=== PATIENT | female | born 1990 | race Caucasian/White ===

== ENCOUNTER → 2016-05-27 21:00 | Emergency (ER) | payer OTHER ==
[~2016-05-27 21:00] MED LIST: DIFLUCAN PO; MACROBID100 MG PO; NO MEDICATIONS; ZOFRANODT PO
== END | disposition left against medical advice (07) ==
LOC: CED 21:00
DX: Z53.21 Procedure and treatment not carried out due to patient leaving prior to being seen by health care provider (principal)

== ENCOUNTER 2016-06-03 03:13 | Emergency (ER) | payer OTHER | END 2016-06-03 03:41 | disposition home or self-care (01) | LOC: SED 03:13 | DX: J06.9 Acute upper respiratory infection, unspecified (principal); F41.9 Anxiety disorder, unspecified; F31.9 Bipolar disorder, unspecified; F17.200 Nicotine dependence, unspecified, uncomplicated | CPT/HCPCS: 84703; 99283 ==

== ENCOUNTER 2016-09-26 21:18 | Emergency (ER) | payer SELFPAY ==
[~2016-09-26] VITALS: Ht 160 cm; Wt 49.9 kg
== END 2016-09-26 23:15 | disposition home or self-care (01) ==
LOC: CFTX 21:18 → CED 21:18
DX: Z53.21 Procedure and treatment not carried out due to patient leaving prior to being seen by health care provider (principal)
CPT/HCPCS: 84703

== ENCOUNTER 2016-11-17 21:45 | Emergency (ER) | payer SELFPAY ==
[~2016-11-17] VITALS: Ht 160 cm; Wt 46.7 kg
== END 2016-11-17 23:46 | disposition left against medical advice (07) ==
LOC: CED 21:45 → CFTX 21:45 → CED 23:00
DX: Z53.21 Procedure and treatment not carried out due to patient leaving prior to being seen by health care provider (principal)